=== PATIENT | female | born 1960 ===

== ENCOUNTER 2017-02-10 11:09 | Outpatient (CLI) | payer OTHER ==
--- NOTE | 2017-02-11 08:16 | Mammography Report ---
BILATERAL DIGITAL SCREENING MAMMOGRAM with CAD: 02/10/17 11:09:00 CLINICAL: Routine screening. COMPARISON:01/25/16 and 11/21/14 FINDINGS: The breasts are heterogeneously dense, which may obscure small masses. No mass, architectural distortion or suspicious calcifications. IMPRESSION: No mammographic evidence of malignancy. BI-RADS CATEGORY: 1 - - Negative RECOMMENDATION: Routine mammographic screening in one year. COMMENT: Patient follow-up letters are generated by our [employer] application.
== END 2017-02-10 11:10 | disposition home or self-care (01) ==
LOC: SPVWC 11:09
PROVIDERS: ATTEND Specialist
DX: Z12.31 Encounter for screening mammogram for malignant neoplasm of breast (principal)
CPT/HCPCS: 77067; G0202